=== PATIENT | female | born 1940 | race Caucasian/White ===

== ENCOUNTER → 2017-09-28 | Outpatient (CLI) | payer MEDICARE ==
[~2017-09-28] MED LIST: ALEN70 PO; ASPI81TA23 PO; ASPI81TA82 PO; AZOP1SUS LEFT EYE; BESI0.6S RIGHT EYE; CENTCHW3 PO; DENO60P SQ; DICL75 PO; DICL75TA PO; DIFL0.0512 RIGHT EYE; GLUC500C3 PO; GLUC500C36 PO; LATA.005%O LEFT EYE; LISI-360 PO; LISI10TA3 PO; TAB-TAB PO; TRAV0.00 LEFT EYE
--- NOTE | 2017-09-28 11:04 | RADRPT ---
EXAM DATE: 09/28/2017 10:45 AM EDT AGE/SEX: 77 years / Female INDICATIONS: Evaluate for pneumothorax, pneumonia or communicable disease. Pre-op, right hip replace ment. CLINICAL DATA: This is the patient's initial encounter. Patient reports that signs and symptoms have been present for 1 day and indicates a pain score of 0/10. MEDICAL/SURGICAL HISTORY: None. Hysterectomy. COMPARISON: No prior [place] exams available for comparison. FINDINGS: PA and lateral views of the chest demonstrate the lungs to be symmetrically aerated without evidence of mass, infiltrate or effusion. The cardiomediastinal contours are unremarkable. Osseous structures are intact. CONCLUSION: Negative examination. Electronically signed by: Zion Alejo MD 09/28/2017 11:02 AM EDT
[2017-09-28 11:10] LABS: BILIRUBIN, URINE NEG (NEG); BLOOD, URINE NEG (NEG); GLUCOSE,URINE NEG (NEG); KETONE, URINE NEG (NEG); NITRITE,URINE NEG (NEG); SQUAMOUS EPITHELIAL CELL URINE <1 /hpf (0-5); URINE COLOR YELLOW (YELLW/STRAW); URINE LEUKOCYTE ESTERASE NEG (NEG)
[2017-09-28 11:13] LABS: AUTOMATED NEUTROPHIL # 4.4 TH/MM3 (1.8-7.7); BASOPHIL # 0.1 TH/MM3 (0-0.2); EOSINOPHIL # 0.2 TH/MM3 (0-0.4); EOSINOPHIL % 3.1 % (0.0-4.0); HEMATOCRIT 43.7 % (35.0-46.0); HEMOGLOBIN 14.4 GM/DL (11.6-15.3); LYMPH % 16.6 % (9.0-44.0); MEAN CELL VOLUME 92.1 FL (80.0-100.0); MEAN CORPUSCULAR HEMOGLOBIN 30.4 PG (27.0-34.0); MEAN PLATELET VOLUME 11.7 FL (7.0-11.0); MONO % 9.2 % (0.0-8.0); MONOCYTE # 0.6 TH/MM3 (0-0.9); NEUT % 70.1 % (16.0-70.0); PLATELET COUNT 200 TH/MM3 (150-450); PROTHROMBIN TIME - PATIENT 10.3 SEC (9.8-11.6); RED BLOOD COUNT 4.74 MIL/MM3 (4.00-5.30); WHITE BLOOD COUNT 6.3 TH/MM3 (4.0-11.0)
[2017-09-28 11:31] LABS: BICARBONATE 27.6 MEQ/L (21.0-32.0); CALCIUM 8.5 MG/DL (8.5-10.1); CREATININE 0.75 MG/DL (0.50-1.00)
--- NOTE | 2017-09-28 18:15 | EKG ---
Date Performed: 09/28/2017 Time Performed: 09:44:12 PTAGE: 77 years EKG: Sinus rhythm POSSIBLE LEFT ATRIAL ENLARGEMENT Since previous tracing, no significant change noted BORDERLINE ECG PREVIOUS TRACING : 09/12/2011 10.16.16 DOCTOR: Taylor Young Interpretating Date/Time 09/28/2017 18:13:53
== END ==
LOC: CPRE 08:37
PROVIDERS: ATTEND Orthopaedic Surgery
DX: Z01.812 Encounter for preprocedural laboratory examination (principal); Z01.810 Encounter for preprocedural cardiovascular examination; Z01.811 Encounter for preprocedural respiratory examination; M16.11 Unilateral primary osteoarthritis, right hip; R94.31 Abnormal electrocardiogram [ECG] [EKG]
CPT/HCPCS: 36415; 71046; 80048; 81001; 85025; 85610; 93005

== ENCOUNTER 2017-10-23 05:08 | Inpatient (IN) | payer MEDICARE ==
--- NOTE | 2017-10-08 16:37 | MH ---
cc: Terrence Carrion MD DATE OF ADMISSION: 10/23/2017 DIAGNOSIS: Osteoarthritis of her right hip. HISTORY: The patient is a 77-year-old white female who presented to the office in March of this past year, complaining of pain involving her right lower extremity. 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 Her symptoms tended to linger thereafter and she returned to the office in June of this year reporting generalized discomfort that was becoming more localized to her right hip area. She had been taking diclofenac on a routine basis with some limited benefit being noted, but because of a recent flare-up of her symptoms, she elected to undergo updated office evaluation. Her x-ray studies at that time were suggestive of some early degenerative changes with hypertrophic reaction along the lateral margin of the femoral head, but preservation of the joint space was noted. Findings and treatment options were reviewed. The patient was treated with a local steroid injection for a suspected trochanteric bursitis along the lateral aspect of her right hip and thereafter being followed on an outpatient basis. She returned to the office reporting ongoing pain for which she subsequently underwent an MRI scan of her pelvis, the results of which will be reported severe bony edema about the right femoral head and neck, with a small linear low signal finding in the subchondral region about the femoral head. Diagnosis included subchondral insufficiency fracture versus an early avascular necrosis. The findings and treatment options were reviewed with the patient at that time. She was encouraged to proceed with a fluoroscopic injection of her right hip for further disposition and trying to distinguish the etiology of her pain. She did complete the injection treatment that did not provide her with any significant pain relief, but she continued to note generalized discomfort about her right groin area that was interfering with all ambulatory activities. 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 The pros and cons of continuing with conservative management versus operative intervention that would involve total hip replacement were outlined in detail. The possibility of proceeding with operative intervention involving surgery was left entirely to the patient's discretion. The patient returned to the office in more followup disposition and at that time her current x-ray studies were suggestive of a more definitive arthritic involvement about the hip area. At that time, the patient felt that she was ready to proceed with surgery as had previously been discussed and, in compliance with her wishes, she was scheduled for admission at this time in order that the above be accomplished. PAST MEDICAL HISTORY, HOSPITALIZATIONS AND SURGERIES: Have included arthroscopic surgery of the right knee, bilateral total knee arthroplasties, manipulation of the right knee for flexion contracture postoperatively, appendectomy, hemorrhoidectomy, lumpectomy of the right breast for history of breast cancer followed by radiation therapy and tamoxifen over a 5-year interval of time, laser surgery of the right eye, bilateral cataract excision, basal cell excision of the right eyelid, surgical stabilization, bimalleolar fracture left ankle, abdominal hysterectomy and salpingo-oophorectomy and colonoscopy. The patient's medical illnesses include hyperlipidemia treated by diet management. CURRENT MEDICATIONS: 1. Glucosamine. 2. Azopt 1% ophthalmic solution twice daily to the left thigh. 3. Travatan eye drops left eye daily. 4. Lisinopril 10 mg daily. 5. Multivitamin tablet daily. 6. Cheri Aspirin 81 mg tablet daily. 7. Prolia injections twice yearly. 8. Diclofenac 75 mg twice daily. DRUG ALLERGIES: DIAMOX which has caused low back pain. CODEINE has been associated with nausea. REVIEW OF SYSTEMS: Wears glasses. No headache, seizure, or syncope. Auditory acuity intact; no tinnitus. No bleeding gums or dysphagia. Denies cough, shortness of breath, upper respiratory infection, pneumonia, or tuberculosis. No angina or heart disease. Appetite good. Bowel movements regular. No hepatitis, gallbladder disease, ulcers. There is a history of hemorrhoids, status post hemorrhoidectomy. No urinary tract infection, no kidney stones. Left wrist fracture treated by closed reduction and external fixation, bimalleolar fracture left ankle, stress fracture of the left femur and ischium, toe fractures treated nonoperatively. No psychiatric illness. Remaining review of systems is unremarkable and noncontributory. FAMILY HISTORY: 59 years. Her is 78 years of age, in reasonably good health being status post open heart surgery. Three sons, 1 at 19 years of age secondary to suicide. The remaining sons in good health. FAMILY HISTORY: Positive for diabetes, melanoma and glaucoma. SOCIAL HISTORY: Completed a atif college education and a subsequent degree from [employer]. Denies active use of tobacco for more than 30 years, but had been a [id number] user in the past. Ethanol consumption socially in the form of an occasional glass of wine. PHYSICAL EXAMINATION: VITAL SIGNS: Height 5 feet, 2 inches, weight 135 pounds. GENERAL: This is an alert, oriented, and responsive 77-year-old white female sitting quietly upon the examination table with no apparent distress. HEAD, EARS, EYES, NOSE, AND THROAT: Pupils are equally round and reactive to light. Extraocular movements full. Sclerae are clear. External nares clear. External auditory canals clear. Dental intact. Mucous membranes pink and moist. Pharynx clear. NECK: Supple. Active range of motion without appreciable pain. Carotid pulse is palpable bilaterally. Trachea midline. Thyroid without thyroid enlargement. LUNGS: Clear to auscultation and percussion. BACK: No CVA tenderness. No discomfort throughout the dorsolumbar spine. HEART: Regular rate and rhythm. No murmur or gallop. ABDOMEN: Soft, nontender, bowel sounds present. PELVIC: Per primary care physician. EXTREMITIES: Right hip: No localizing tenderness to palpation. There is restricted mobility of the hip joint being most pronounced with both internal and external rotation and pain at the extreme of motion. No sensation of crepitation or instability. Straight leg raising is negative at 80 degrees. Brett sign is positive. Distal sensory grossly intact. Mild antalgic gait. NEUROLOGIC: Cranial nerves 2-12 grossly intact. IMPRESSION: Osteoarthritis, right hip. PLAN: Right total hip arthroplasty. The nature of the planned surgical procedure, the potential complications and risks associated, the expectations of surgery and the consent form were thoroughly reviewed with the patient prior to admission to the hospital. Shama has indicated her full understanding regarding all of the above and given consent to proceed with treatment as outlined. Medical evaluation and clearance for surgery completed by her primary care physician, Dr. Devaughn Díaz. MD LESLEE Castaneda/SB , 04:03 PM , 04:36 PM
[~2017-10-23] VITALS: Ht 157.5 cm; Wt 62.8 kg
[~2017-10-23 05:08] MED LIST changes: -ALEN70 PO; -ASPI81TA82 PO; -DICL75 PO; -GLUC500C3 PO; -LISI-360 PO; -TAB-TAB PO; -TRAV0.00 LEFT EYE
[2017-10-23] MEDS ORDERED: LACTATED RINGER'S 1000 ML IV PRN (05:30)
[2017-10-23] MEDS ORDERED: CHLORHEXIDINE GLUCONATE 2 % 1 PACK (2 CLOTHS) TOPICAL PRN (05:30)
[2017-10-23] MEDS ORDERED: ceFAZolin 2 GM PREMIX 50 ML IV SCH (05:30)
[2017-10-23] MEDS ORDERED: INSULIN HUMAN REGULAR 1,000 UNITS/10 ML VIAL SQ PRN (05:30)
[2017-10-23] MEDS ORDERED: POVIDONE IODINE 5% (ANTISEPSIS KIT) 4 APPLICATIONS EACH NARE PRN (05:30)
[2017-10-23] MEDS ORDERED: SODIUM CHLORID 0.9% 500 ML IV PRN (05:30)
[2017-10-23] MEDS ORDERED: TRANEXAMIC ACID 1 GM PRIOR TO PROCEDURE IV SCH ×2 (06:00)
[2017-10-23] MEDS ORDERED: ceFAZolin INJ 1,000 MG VIAL ONE ×2 (06:00→13:22)
[2017-10-23] MEDS ORDERED: MIDAZOLAM HCL 2 MG/2 ML VIAL ONE (06:14)
[2017-10-23] MEDS ORDERED: ACETAMINOPHEN 1000 MG/100 ML 100 ML IV ONE (06:14)
[2017-10-23] MEDS ORDERED: FAMOTIDINE 20 MG/2 ML VIAL ONE (06:14)
[2017-10-23] MEDS ORDERED: TRANEXAMIC ACID 1 GM POST-OP IV SCH ×2 (09:00)
[2017-10-23] MEDS ORDERED: DO NOT ADM ANY ANTICOAGULANT DRUGS PRN (09:10)
[2017-10-23] MEDS ORDERED: *morphine SULFATE 4 MG/ML PERIprocedure ONLY ONE ×3 (09:20→09:36)
[2017-10-23] MEDS ORDERED: ACETAMINOPHEN 325 MG TAB PO PRN (09:30)
[2017-10-23] MEDS ORDERED: traMADol HCL 50 MG TAB PO PRN (09:30)
[2017-10-23] MEDS ORDERED: Post-op Orders (for Pharmacy) XX ONE (09:30)
[2017-10-23] MEDS ORDERED: ONDANSETRON ODT 4 MG TAB PO PRN (09:30)
[2017-10-23] MEDS ORDERED: TRANEXAMIC ACID INJ 1,000 MG in SODIUM CHLORIDE 0.9% INJ 100 ML IV SCH (09:30)
[2017-10-23] MEDS ORDERED: DOCUSATE SODIUM 100 MG CAP PO PRN (09:30)
[2017-10-23] MEDS ORDERED: PHARMACY INFORMATION XX ONE (09:30)
[2017-10-23] MEDS ORDERED: MORPHINE SULFATE 30 MG/30 ML PCA IV SCH (09:30)
[2017-10-23] MEDS ORDERED: NALOXONE HCL 0.4 MG/ML AMP IV PUSH PRN (09:30)
[2017-10-23] MEDS ORDERED: HYDROmorphone HCL PF 2 MG/ML VIAL IV PUSH PRN (09:30)
--- NOTE | 2017-10-23 09:31 | HHI.FF ---
Face to Face Verification Diagnosis: (1) Degenerative joint disease of right hip Physical Therapy Gait training Hip: Total hip, Protocol: Right, Abduction pillow while in bed Right LE Weight Bearing: WB as tolerated Right LE Range of Motion: Active ROM Nursing Dressing Changes: Daily dressing change I have seen patient Shama Barksdale on 10/23/17. My clinical findings support the need for the requested home health care services because: Limited ability to care for self High risk of falls I certify that my clinical findings support that this patient is homebound because: Post-op weakness Unsteady gait/balance Unsafe to leave home unassisted Terrence Carrion MD Oct 23, 2017 09:31
[2017-10-23] MEDS: DEXT 5%-NACL 0.45% 1000 ML INJ 1,000 ML IV SCH ×3 (09:45→20:34)
[2017-10-23] MEDS ORDERED: HYDROmorphone HCL PF 2 MG/ML VIAL ONE ×2 (09:48→10:28)
--- NOTE | 2017-10-23 09:50 | MP ---
cc: Terrence Carrion MD DATE OF OPERATION: PREOPERATIVE DIAGNOSIS: Osteoarthritis of the right hip. POSTOPERATIVE DIAGNOSIS: Osteoarthritis of the right hip. PROCEDURE PERFORMED: Right total hip arthroplasty. SURGEON: Terrence Carrion MD ANESTHESIA: General endotracheal. INDICATIONS: A 77-year-old white female with a 7-month history of pain involving the right hip area. She had initially been diagnosed as having an intervertebral disk disorder of her lumbosacral spine for which she was advised conservative management. The symptoms tended to linger thereafter and she returned to the office in June of this year reporting generalized discomfort becoming more localized to the area of her right hip. She has been taking diclofenac on a routine basis with some limited benefit being noted but because of a recent flare of her symptoms, she underwent an updated evaluation. Her x-ray studies at that time were suggestive of early degenerative changes with hypertrophic reaction along the lateral margin of the femoral head, but preservation of the joint space. Findings and treatment options were reviewed. The patient was treated with a local steroid injection for a suspected trochanteric bursitis and thereafter followed on an outpatient basis. She returned to the office thereafter reporting ongoing pain for which she later underwent an MRI scan of her pelvis, the results of which reported severe bony edema about the right femoral head and neck, with a small linear low signal finding in the subchondral region about the femoral head. Diagnosis included subchondral insufficiency fracture versus early avascular necrosis. Findings and treatment options were reviewed with the patient at that time. She was encouraged to proceed with a fluoroscopic injection of her right hip. Further disposition in an attempt to obtain a more specific etiology of her pain. She did complete an injection that did not provide her with any significant pain relief, but continued to note generalized discomfort about her right groin area that was interfering with all ambulatory activities. Her findings were felt to be consistent with an idiopathic aseptic necrosis of her right femoral head, for which findings and treatment options were reviewed. The pros and cons of continuing with conservative management versus operative intervention that would involve total hip replacement were outlined in detail. Emphasis was made regarding the fact that the decision to proceed with surgery would be left entirely to the patient's discretion. More current x-ray studies were completed thereafter that were more suggestive of a more definitive arthritic involvement about her hip area and at that time, the patient felt that she was ready to proceed with surgery as had previously been discussed and in compliance with her wishes, she was scheduled for admission at this time in order that the above be accomplished. FORMAT: Following induction of satisfactory general anesthesia by endotracheal intubation as completed per the Department of Anesthesia, the patient was positioned upon the operating table in a left lateral decubitus fashion. The right hip and lower extremity proper were isolated with a U-drape, thereafter being prepped with Betadine solution and draped into a sterile field in the routine manner. Prior to initiation of the actual procedure, the standard timeout protocol was completed. All parameters were appropriately addressed and confirmed by operating room personnel. A standard posterolateral approach to the hip was initiated through a sharp skin incision and developed through underlying subcutaneous tissue with hemostasis maintained by electrocautery. By deepening dissection, the fascia overlying the gluteus musculature was exposed and thereafter sharply incised to the limits of the incision. The underlying gluteus fibers were bluntly divided. Progressive dissection facilitated exposure of the short external rotator structures. The piriformis tendon was utilized as an anatomical landmark and division of these structures was completed in a superior to inferior orientation and reflected medially, exposing the posterior capsule. The sciatic nerve was protected. An L-shaped capsulotomy was accomplished through which a posterior dislocation of the femoral head was completed. Examination revealed severe degenerative changes with significant erosion of articular cartilage and underlying subchondral bone exposed hypertrophic bony reaction along the margins of the femoral head. The femoral template was positioned for alignment orientation. The neck was scored and thereafter divided with power saw, the amputated segment being passed to the back table as surgical specimen. Attention was initially directed to the proximal femur. Cancellous bone was harvested. The tapered reamer was inserted for alignment orientation. Sequential rasping and broaching was accomplished from 7 through 10 mm with the calcar butch being utilized at the 10 mm stage. The 10 mm stem was determined to be a favorable fit. The trial component being removed, attention was redirected to the acetabulum. The labrum and reactive soft tissue were sharply excised. Progressive reaming was accomplished from 44-50 mm. The 50 mm trial shell was positioned and determined to be satisfactory. All trial components being removed, the wound was copiously irrigated with pulsating antibiotic solution, hemostasis maintained by electrocautery. Thereafter, a 50 mm RingLoc acetabular shell was firmly seated into the acetabulum in approximately 45 degrees inclination to the horizontal and slight anteversion. A single 25 mm 6.5 cancellous screw was inserted superiorly to augment fixation. The permanent high wall acetabular liner was affixed to the acetabular shell. The size 10 femoral broach was repositioned and a trial reduction followed utilizing a 36 mm modular head with -6 mm neck length adaptor. The hip readily reduced and carried through a passive range of motion with stability demonstrated at 90 degrees flexion and 45 degrees internal rotation. An open dislocation completed, the trial femoral components being removed, the canal was thoroughly irrigated and dried and thereafter, the size 10 Echo Bi-Metric standard femoral stem was firmly seated to which, a 36 mm ceramic head with -6 mm neck length adapter was attached. The hip was again carried through a passive range of motion with stability demonstrated as previously described. Final irrigation was accomplished, hemostasis maintained by electrocautery. The posterior capsule was repaired with 0 Vicryl suture. Piriformis tendon and short external rotator structures were reapproximated in a similar fashion. Hemovac drain tubes were inserted through superior stab wounds. The fascia of the gluteus musculature was reapproximated with a running 0 Vicryl suture. The remaining portion of the wound was closed in layers in the routine manner, skin margins being reapproximated with a running subcuticular 3-0 Vicryl suture over which Steri-Strips were applied. Xeroform gauze and a bulky dry sterile dressing were placed. The patient was repositioned into a supine orientation where an abduction splint was attached. Anesthesia was discontinued. She was thereafter transferred to a hospital bed and returned to the recovery room in satisfactory condition, having tolerated her operative procedure well. ESTIMATED BLOOD LOSS: Approximately 300 mL as determined per anesthesia. IMPLANTS: All implants were of the [employer] ccu. Terrence Carrion MD NBS/TL , 09:20 AM , 09:48 AM
--- NOTE | 2017-10-23 10:29 | RADRPT ---
EXAM DATE: 10/23/2017 10:25 AM EDT AGE/SEX: 77 years / Female INDICATIONS: Post op right hip. CLINICAL DATA: This is the patient's initial encounter. Patient reports that signs and symptoms have been present for 1 day and indicates a pain score of Nonresponsive. MEDICAL/SURGICAL HISTORY: None. None. COMPARISON: No prior exams available for comparison. FINDINGS: AP view of the right hip joint demonstrates the hardware related to total hip arthroplasty. There is a single acetabular screw. Components are noncemented. Surgical drain is in place and there is soft t issue air, as expected. No unexpected finding is identified. There is degenerative change at the pubi c symphysis. CONCLUSION: Expected changes following recent right total hip arthroplasty, as above. Electronically signed by: Zion Campos MD 10/23/2017 10:28 AM EDT
[2017-10-23] MEDS ORDERED: ROCURONIUM INJ 50 MG/5 ML SYRINGE IV PUSH ONE (12:00)
[2017-10-23] MEDS ORDERED: PHENYLEPH/NS 1000 MCG/10 ML SYR IV ONE (12:00)
[2017-10-23] MEDS ORDERED: PROPOFOL 200 MG/20 ML AMP IV ONE (12:00)
[2017-10-23] MEDS ORDERED: LIDOCAINE HCL 1% PF 5 ML SYRINGE OTHER ONE (12:00)
[2017-10-23] MEDS ORDERED: NEOSTIGMINE 5 MG/5 ML SYRINGE IV PUSH ONE (12:00)
[2017-10-23] MEDS ORDERED: LACTATED RINGER'S 1000 ML INJ 1,000 ML IV ONE (12:00)
[2017-10-23] MEDS ORDERED: DEXAMETHASONE SOD PHOS 4 MG/ML VIAL IV ONE (12:00)
[2017-10-23] MEDS ORDERED: GLYCOPYRROLATE 1 MG/5 ML SYRINGE IV PUSH ONE (12:00)
[2017-10-23] MEDS ORDERED: ONDANSETRON HCL 4 MG/2 ML VIAL IV ONE (12:00)
[2017-10-23] MEDS ORDERED: SODIUM CHLORIDE 0.9% INJ 100 ML ONE (13:22)
[2017-10-23] MEDS: CEFAZOLIN INJ 1,000 MG in SODIUM CHLORIDE 0.9% INJ 100 ML IV SCH ×2 (13:26→20:34)
--- NOTE | 2017-10-23 13:46 | PD.CONS ---
[facility] By [facility] Physician Vaughn Díaz MD Diagnoses: History of Present Illness 69-year-old female with history of diet-controlled hyperlipidemia, hypertension , glaucoma, osteoarthritis who presents status post elective right total hip arthroplasty. Patient says she is feeling all right. Reports pain is controlled. She denies any chest pain, shortness of breath, nausea, vomiting. Most recent bowel movement yesterday. She says she felt fine prior to surgery, with no recent respiratory illnesses or symptoms of infection. Review of Systems Except as stated in HPI: all other systems reviewed are Neg Past Family Social History Allergies: Coded Allergies: acebutolol (Unverified Allergy, Mild, SOB, 10/23/17) ADVERSE REACTION. PT BECAME SOB WHILE RUNNING WHEN ON BETA BLOCKERS atenolol (Unverified Allergy, Mild, SOB, 10/23/17) ADVERSE REACTION. PT BECAME SOB WHILE RUNNING WHEN ON BETA BLOCKERS betaxolol (Unverified Allergy, Mild, SOB, 10/23/17) ADVERSE REACTION. PT BECAME SOB WHILE RUNNING WHEN ON BETA BLOCKERS carvedilol (Unverified Allergy, Mild, SOB, 10/23/17) ADVERSE REACTION. PT BECAME SOB WHILE RUNNING WHEN ON BETA BLOCKERS labetalol (Unverified Allergy, Mild, SOB, 10/23/17) ADVERSE REACTION. PT BECAME SOB WHILE RUNNING WHEN ON BETA BLOCKERS metoprolol (Unverified Allergy, Mild, SOB, 10/23/17) ADVERSE REACTION. PT BECAME SOB WHILE RUNNING WHEN ON BETA BLOCKERS nebivolol (Unverified Allergy, Mild, SOB, 10/23/17) ADVERSE REACTION. PT BECAME SOB WHILE RUNNING WHEN ON BETA BLOCKERS pindolol (Unverified Allergy, Mild, SOB, 10/23/17) ADVERSE REACTION. PT BECAME SOB WHILE RUNNING WHEN ON BETA BLOCKERS propranolol (Unverified Allergy, Mild, SOB, 10/23/17) ADVERSE REACTION. PT BECAME SOB WHILE RUNNING WHEN ON BETA BLOCKERS sotalol (Unverified Allergy, Mild, SOB, 10/23/17) ADVERSE REACTION. PT BECAME SOB WHILE RUNNING WHEN ON BETA BLOCKERS timolol (Unverified Allergy, Mild, SOB, 10/23/17) ADVERSE REACTION. PT BECAME SOB WHILE RUNNING WHEN ON BETA BLOCKERS acetazolamide (Verified Allergy, Unknown, 10/23/17) codeine (Verified Adverse Reaction, Severe, Nausea/Vomiting, 10/23/17) Past Medical History Osteoporosis Hypertension Glaucoma Chronic pain. Hyperlipidemia treated by diet Past Surgical History Arthroscopic surgery of the right knee bilateral total knee arthroplasties appendectomy hemorrhoidectomy lumpectomy of right breast with subsequent radiation and tamoxifen over 5 years. Laser keratotomy of the right eye Basal cell excision of the right eyelid Bimalleolar fracture of the left ankle Abdominal hysterectomy and salpingo-oophorectomy Colonoscopy Reported Medications Reported Meds & Active Scripts Active Reported Diclofenac Sodium DR (Diclofenac Sodium) 75 Mg Tabdr 75 Mg PO BID Prolia Inj (Denosumab) 60 Mg/Ml Inj 60 Mg SQ Q180D Lisinopril 10 Mg Tab 10 Mg PO BID Durezol Opth (Difluprednate Opth) 0.05% Emul 1 Drop RIGHT EYE BID Besivance Opth Drops (Besifloxacin Opth Drops) 0.6% Drops 1 Drop RIGHT EYE DAILY Azopt Opth Drops (Brinzolamide) 1% Susp 1 Drop LEFT EYE BID Xalatan Opth Drops (Latanoprost) 0.005% Drops 1 Drop LEFT EYE HS Centrum Silver (Multiple Vitamins W/ Minerals) 400 Mcg-250 Mcg Chw 1 Tab PO DAILY Glucosamine & Chondroitin Cap (Glucosa Raza 2Kcl/Chondroitin Raza) 500 Mg-400 Mg Capsule 3 Tab PO DAILY pt reports dose of 1500/1200 mg per day Aspirin EC (Aspirin) 81 Mg Tabdr 81 Mg PO DAILY Family History Mother with diabetes. Father secondary to old age Social History Non-smoker. Occasional alcohol use. Denies any illicit drugs Physical Exam Vital Signs Vital Signs Date Time Temp Pulse Resp B/P (MAP) Pulse Ox O2 Delivery O2 Flow Rate FiO2 10/23/17 10:17 12 10/23/17 10:15 61 10 134/68 (90) 97 Nasal Cannula 2 10/23/17 10:00 59 12 147/71 (96) 98 Nasal Cannula 2 10/23/17 09:45 62 12 132/66 (88) 100 Nasal Cannula 2 10/23/17 09:30 66 18 138/68 (91) 100 Nasal Cannula 2 10/23/17 09:15 69 18 162/79 (106) 100 Nasal Cannula 2 10/23/17 09:12 97.4 75 17 164/82 (109) 100 Nasal Cannula 2 10/23/17 06:01 98.1 61 20 159/79 (768) 97 Physical Exam GENERAL: This is a well-nourished, well-developed patient, in no apparent distress. Somnolent, wakes up for exam and oriented 3. SKIN: No rashes, ecchymoses or lesions. Cool and dry. HEAD: Atraumatic. Normocephalic. No temporal or scalp tenderness. EYES: Pupils equal round and reactive. Extraocular motions intact. No scleral icterus. No injection or drainage. ENT: Nose without bleeding, purulent drainage or septal hematoma. Throat without erythema, tonsillar hypertrophy or exudate. Uvula midline. Airway patent. NECK: Trachea midline. No JVD or lymphadenopathy. Supple, nontender, no meningeal signs. CARDIOVASCULAR: Regular rate and rhythm without murmurs, gallops, or rubs. RESPIRATORY: Clear to auscultation. Breath sounds equal bilaterally. No wheezes , rales, or rhonchi. GASTROINTESTINAL: Abdomen soft, non-tender, nondistended. No hepato-splenomegaly , or palpable masses. No guarding. MUSCULOSKELETAL: Extremities without clubbing, cyanosis, or edema. No joint tenderness, effusion, or edema noted. No calf tenderness. Negative Homans sign bilaterally. NEUROLOGICAL: Somnolent, wakes up for exam. Cranial nerves II through XII intact. Motor and sensory grossly within normal limits. Right hip not examined. Peripheral perfusion intact. Normal speech. Imaging Last Impressions Hip X-Ray 10/23/17 0910 Signed Impressions: CONCLUSION: Expected changes following recent right total hip arthroplasty, as above. Assessment and Plan Assessment and Plan //Postoperative elective right-sided total hip arthroplasty on 10/23 Postoperative management as per surgical service Pain management as per surgical service //Glaucoma. Chronic. Continue home medications //Hypertension. Chronic. Blood pressure acceptable. Continue home medications. Discussed Condition With Patient, nurse. Ezra Underwood MD Oct 23, 2017 13:46
[2017-10-23 14:00] VITALS: BP 174/70; PULSE 75; RESP 16; TEMP 98.3; O2SAT 98
[2017-10-23] MEDS: PCA - TOTAL MG MORPHINE DELIVERED PER SHIFT SCH ×2 (14:00→20:33)
[2017-10-23 20:05] VITALS: BP 122/69; PULSE 85; RESP 18; TEMP 97.4; O2SAT 94
[2017-10-23] MEDS: LISINOPRIL 10 MG TAB PO SCH (20:33)
[2017-10-23] MEDS: LATANOPROST 0.005% OPHT SOLN 2.5 ML BTL LEFT EYE SCH (20:34)
[2017-10-23] MEDS ORDERED: BRINZOLAMIDE LEFT EYE SCH (21:00)
[2017-10-23] MEDS ORDERED: ZOLPIDEM TARTRATE 5 MG TAB PO PRN (21:00)
[2017-10-23] MEDS ORDERED: DIFLUPREDNATE RIGHT EYE SCH (21:00)
[2017-10-24 00:30] VITALS: BP 129/59; PULSE 91; RESP 17; TEMP 98.4; O2SAT 94
[2017-10-24] MEDS: CEFAZOLIN INJ 1,000 MG in SODIUM CHLORIDE 0.9% INJ 100 ML IV SCH (01:58)
[2017-10-24 04:15] VITALS: BP 105/59; PULSE 84; RESP 17; TEMP 98.6; O2SAT 95
[2017-10-24] MEDS: PCA - TOTAL MG MORPHINE DELIVERED PER SHIFT SCH ×3 (05:41→22:00)
[2017-10-24] MEDS ORDERED: RIVAROXABAN 10 MG TAB PO SCH (06:00)
[2017-10-24] MEDS ORDERED: ASPI-183 PO (06:13)
[2017-10-24] MEDS ORDERED: TRAM50 PO (06:13)
[2017-10-24] MEDS ORDERED: WALKER WHEELS/F1 MIS (06:17)
[2017-10-24] MEDS ORDERED: COMMODE 3-IN-11 MIS (06:17)
[2017-10-24 07:17] LABS: HEMATOCRIT 35.7 % (35.0-46.0); HEMOGLOBIN 11.8 GM/DL (11.6-15.3)
[2017-10-24 08:00] VITALS: BP 129/67; PULSE 82; RESP 18; TEMP 98.6; O2SAT 95
[2017-10-24] MEDS: LISINOPRIL 10 MG TAB PO SCH ×2 (08:13→22:00)
[2017-10-24] MEDS: RIVAROXABAN 10 MG TAB PO SCH (08:14)
[2017-10-24] MEDS ORDERED: BESIFLOXACIN RIGHT EYE SCH (09:00)
[2017-10-24] MEDS: ASPIRIN EC 81 MG TABEC PO SCH (09:00)
[2017-10-24] MEDS: DEXT 5%-NACL 0.45% 1000 ML INJ 1,000 ML IV SCH ×2 (09:45→15:23)
[2017-10-24] MEDS ORDERED: METOCLOPRAMIDE HCL 10 MG/2 ML VIAL IV PUSH PRN (10:00)
[2017-10-24] MEDS ORDERED: LACTULOSE SYRUP 20 GM/30 ML CUP PO PRN (10:30)
--- NOTE | 2017-10-24 10:30 | HHI.PR ---
Subjective Remarks Follow-up visit for elective total right-side hip arthroplasty. She is seen and examined sitting in bed in no acute distress with family at bedside. Patient reports that she was nauseated yesterday but believes it might be related to anesthesia, no nausea overnight or this morning. Pain has been stable reports she forgets to use [facility] pump. She does complain of constipation, today would be day 3 without a bowel movement. She voices no other acute concerns or complaints at this moment. Objective Vitals Vital Signs Date Time Temp Pulse Resp B/P (MAP) Pulse Ox O2 Delivery O2 Flow Rate FiO2 10/24/17 08:00 98.6 82 18 129/67 (87) 95 10/24/17 05:41 5 10/24/17 04:15 98.6 84 17 105/59 (74) 95 10/24/17 00:30 98.4 91 17 129/59 (82) 94 10/23/17 20:05 97.4 85 18 122/69 (86) 94 10/23/17 14:00 98.3 75 16 174/70 (104) 98 10/23/17 14:00 16 10/23/17 13:00 76 12 118/66 (83) 98 Nasal Cannula 2 10/23/17 12:00 72 12 108/58 (75) 98 Nasal Cannula 2 10/23/17 11:00 68 12 125/65 (85) 97 Nasal Cannula 2 10/23/17 10:30 65 12 139/72 (94) 97 Nasal Cannula 2 I/O 10/23/17 10/23/17 10/23/17 10/24/17 10/24/17 10/24/17 07:00 15:00 23:00 07:00 15:00 23:00 Intake Total 1700 ml 1000 ml 360 ml Output Total 330 ml 70 ml Balance 1370 ml 1000 ml 290 ml Intake Oral 360 ml IV Total 1000 ml Other 1700 ml Output Drainage Total 30 ml 70 ml Estimated Blood Loss 300 ml # Voids 3 # Bowel Movements 0 Result Diagram: 10/24/17 0630 Imaging Last Impressions Hip X-Ray 10/23/17 0923 Signed Impressions: CONCLUSION: Expected changes following recent right total hip arthroplasty, as above. Objective Remarks GENERAL: Well-nourished, well-developed female in no acute distress. SKIN: Cool and dry. HEAD: Atraumatic. Normocephalic. EYES: Pupils equal round. No scleral icterus. No injection or drainage. ENT: Nose without bleeding, purulent drainage. Airway patent. NECK: Trachea midline. No JVD. CARDIOVASCULAR: Regular rate and rhythm without murmurs, gallops, or rubs. RESPIRATORY: Clear to auscultation. Breath sounds equal bilaterally. No wheezes , rales, or rhonchi. GASTROINTESTINAL: Abdomen soft, non-tender, nondistended. Normoactive bowel sounds, no guarding. MUSCULOSKELETAL: Extremities without clubbing, cyanosis, or edema. Limited right hip movement secondary to surgery. Dressing dry and intact, accordion drain noted with dark red blood. NEUROLOGICAL: Awake, alert, oriented 3. No cranial nerve deficit noted motor and sensory grossly within normal limits. Moving all extremities, normal speech. A/P Assessment and Plan 77-year-old female admitted to hospital for elective total right hip arthroplasty. Elective right sided total hip arthroplasty - POD 1, done by - PT/ IS, bowel program -Pain management with [facility] pump, as needed tramadol and Dilaudid -Anticoagulation per Ortho. -Nausea has resolved, as needed Reglan IV Hypertension, controlled -Continue home dose lisinopril. Constipation -Secondary to pain medication, continue stool softener. Discussed with patient requesting lactulose today, available PRN Glaucoma -Continue home Latanoprost DVT prophylaxis-Xarelto Discussed with patient and RN. Discharge Planning Pending orthopedic clearance. PT recommends wheeled walker, bedside commode, home with home health PT. Francie Coker Oct 24, 2017 10:30
[2017-10-24 12:00] VITALS: BP 120/57; PULSE 88; RESP 17; TEMP 98.2; O2SAT 94
[2017-10-24] MEDS: traMADol HCL 50 MG TAB PO PRN ×2 (12:00→19:30)
[2017-10-24 16:24] VITALS: BP 132/68; PULSE 86; RESP 18; TEMP 98.1; O2SAT 94
[2017-10-24 20:00] VITALS: BP 151/67; PULSE 92; RESP 18; TEMP 98.8; O2SAT 94
[2017-10-24] MEDS: LATANOPROST 0.005% OPHT SOLN 2.5 ML BTL LEFT EYE SCH (22:05)
[2017-10-25 00:01] VITALS: BP 127/66; PULSE 100; RESP 18; TEMP 98.8; O2SAT 93
[2017-10-25] MEDS: DEXT 5%-NACL 0.45% 1000 ML INJ 1,000 ML IV SCH ×4 (01:45→21:12)
[2017-10-25 04:00] VITALS: BP 149/71; PULSE 104; RESP 18; TEMP 99.8; O2SAT 93
[2017-10-25] MEDS: traMADol HCL 50 MG TAB PO PRN ×3 (04:05→23:08)
[2017-10-25] MEDS: PCA - TOTAL MG MORPHINE DELIVERED PER SHIFT SCH (06:00)
[2017-10-25 08:03] VITALS: BP 120/61; PULSE 97; RESP 18; TEMP 99.2; O2SAT 94
[2017-10-25] MEDS: RIVAROXABAN 10 MG TAB PO SCH (09:54)
[2017-10-25] MEDS: ASPIRIN EC 81 MG TABEC PO SCH (09:54)
[2017-10-25] MEDS: LISINOPRIL 10 MG TAB PO SCH ×2 (09:54→21:10)
--- NOTE | 2017-10-25 10:09 | HHI.PR ---
Subjective Remarks Overall pain controlled. No other concerns. Objective Vitals Vital Signs Date Time Temp Pulse Resp B/P (MAP) Pulse Ox O2 Delivery O2 Flow Rate FiO2 10/25/17 08:03 99.2 97 18 120/61 (80) 94 10/25/17 04:00 99.8 104 18 149/71 (97) 93 10/25/17 00:01 98.8 100 18 127/66 (86) 93 10/24/17 20:30 18 10/24/17 20:00 98.8 92 18 151/67 (95) 94 10/24/17 16:24 98.1 86 18 132/68 (89) 94 10/24/17 14:00 16 10/24/17 12:00 98.2 88 17 120/57 (78) 94 I/O 10/24/17 10/24/17 10/24/17 10/25/17 10/25/17 10/25/17 06:59 14:59 22:59 06:59 14:59 22:59 Intake Total 360 ml 1300 ml Output Total 70 ml 130 ml Balance 290 ml 1170 ml Intake Oral 360 ml 1300 ml Output Drainage Total 70 ml 130 ml # Voids 3 5 5 # Bowel Movements 0 0 Result Diagram: 10/24/17 0630 Objective Remarks GENERAL: This is a well-nourished, well-developed patient, in no apparent distress. CARDIOVASCULAR: Regular rate and rhythm RESPIRATORY: Clear to auscultation. Breath sounds equal bilaterally. No wheezes , rales, or rhonchi. MUSCULOSKELETAL: Right hip bandage clean dry intact NEURO: Alert & Oriented x4 to person, place, time, situation. Moves all ext x4 A/P Assessment and Plan 77-year-old female admitted to hospital for elective total right hip arthroplasty. Elective right sided total hip arthroplasty -Status post operative day #2 continue postoperative -care, pain control, physical therapy per Dr. orta Hypertension, controlled -Continue home dose lisinopril. Constipation -Secondary to pain medication, continue stool softener. Glaucoma -Continue home Latanoprost DVT prophylaxis-Xarelto Discharge Planning Home with home health care when cleared by orthopedic surgery Soni Porter MD Oct 25, 2017 10:09
[2017-10-25 12:10] VITALS: BP 125/86; PULSE 95; RESP 18; TEMP 99; O2SAT 95
[2017-10-25 15:11] VITALS: BP 129/61; PULSE 94; RESP 16; TEMP 98.4; O2SAT 95
[2017-10-25 20:00] VITALS: BP 124/54; PULSE 98; RESP 19; TEMP 98.1; O2SAT 95
[2017-10-25] MEDS: LATANOPROST 0.005% OPHT SOLN 2.5 ML BTL LEFT EYE SCH (21:12)
[2017-10-26] VITALS: BP 148/67; PULSE 106; RESP 19; TEMP 99.5; O2SAT 95
[2017-10-26 04:00] VITALS: BP 129/63; PULSE 97; RESP 16; TEMP 98.9; O2SAT 95
--- NOTE | 2017-10-26 06:39 | MD ---
cc: Terrence Carrion MD, Eugene M MD DATE OF DISCHARGE: 10/26/2017 ADMITTING DIAGNOSIS: Osteoarthritis right hip. DISCHARGE DIAGNOSIS: Osteoarthritis right hip. HISTORY: This is a 77-year-old white female with a history of right hip pain dating back to March of this past year and at that time, the patient was diagnosed as having an intervertebral disk disorder of her lumbosacral spine forward which she was advised conservative management. Her symptoms lingered over a several months thereafter and she returned to the office in June reporting generalized discomfort becoming more localized to her right hip. She had been taking diclofenac on a routine basis with limited benefit being appreciated, but because of her recent flare up of her symptoms, she elected to undergo office examination. Her x-ray studies at that time were suggestive of early degenerative changes with hypertrophic reaction along the lateral margin of the femoral head, but preservation of the joint space. Findings and treatment options were reviewed. The patient was treated with a local steroid injection for a suspected trochanteric bursitis. Unfortunately, her symptoms persisted and she later underwent an MRI scan of the pelvis, the results of which will be reported severe bony edema of the right femoral head and neck with a small linear low signal finding in the subchondral region of the femoral head. Diagnosis included subchondral insufficiency fracture versus early avascular necrosis. Findings and treatment options were again reviewed. The patient was encouraged to proceed with a fluoroscopic injection of her right hip in an attempt to distinguish the etiology of her pain. Unfortunately, the injection did not provide her with any significant pain relief and she continued to not generalized discomfort about her right groin area that was interfering with all ambulatory activities. 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 The pros and cons of continuing with conservative management versus operative intervention that would involve total hip arthroplasty were outlined. Emphasis was made regarding the fact that the decision to proceed with surgery would be left entirely to the patient's discretion. The patient returned to the office in followup disposition indicating that she was feeling more symptomatic with pain and inclined to proceed with surgery as suggested. Her current x-ray studies did demonstrate a more definitive arthritic involvement about the hip area and thus in compliance with the patient's request, she was scheduled for admission in order that the above be accomplished. Her physical examination at the time of admission revealed no localizing tenderness to palpation about the lateral aspect of the right hip. There was restricted mobility of the hip joint being most pronounced with internal and external rotation, pain at the extremes of motion. No sensation of crepitation or instability. Straight leg raising negative at 80 degrees. Brett's sign positive. Distal neurosensory intact. Antalgic gait. HOSPITAL COURSE: Prior to admission to the hospital, the patient had undergone medical evaluation and clearance for surgery as completed by her primary care physician, Dr. Devaughn mina. She was taken to the operating room on 23 October 2017 and on that date underwent a right total hip arthroplasty completed in an uncomplicated manner. The patient was noted to have tolerated her operative procedure well. Her postoperative course stable thereafter. Hemoglobin and hematocrit assessment postoperatively was 11.8 and 35.7 respectively. The patient was progressively mobilized under the guidance of physical therapy being permitted weightbearing to tolerance about the right lower extremity. Followup examination of her surgical wound noted to be intact, healing favorably with no evidence of infection. Medical followup per the hospitalist service. DVT prophylaxis initiated. Improvement Intern consulted to assist with discharge planning. The patient had expressed her desire to be discharged home and continue her rehabilitation on an outpatient basis. Plans were finalized in this regard and pending medical clearance, she was scheduled for discharge on the third postoperative day, at which time she was noted to be making stable progress with regard to her rehab program. She was scheduled to be seen in office followup in approximately 4 weeks. DISCHARGE MEDICATIONS: Included Ultram 50 mg, #40, aspirin 325 mg 1 tab twice daily for 4 weeks, #60. Terrence Carrion MD NBS/DL , 06:11 AM , 06:38 AM
[2017-10-26 08:00] VITALS: BP 115/57; PULSE 93; RESP 17; TEMP 99.1; O2SAT 95
[2017-10-26] MEDS: DEXT 5%-NACL 0.45% 1000 ML INJ 1,000 ML IV SCH (09:19)
[2017-10-26] MEDS: LISINOPRIL 10 MG TAB PO SCH (09:19)
[2017-10-26] MEDS: RIVAROXABAN 10 MG TAB PO SCH (09:19)
[2017-10-26] MEDS: ASPIRIN EC 81 MG TABEC PO SCH (09:20)
--- NOTE | 2017-10-26 10:37 | HHI.PR ---
Subjective Remarks Doing well. No other concerns. Ready to go home today Objective Vitals Vital Signs Date Time Temp Pulse Resp B/P (MAP) Pulse Ox O2 Delivery O2 Flow Rate FiO2 10/26/17 08:00 99.1 93 17 115/57 (76) 95 10/26/17 04:00 98.9 97 16 129/63 (85) 95 10/26/17 00:00 99.5 106 19 148/67 (94) 95 10/25/17 20:00 98.1 98 19 124/54 (77) 95 10/25/17 15:11 98.4 94 16 129/61 (83) 95 10/25/17 12:10 99.0 95 18 125/86 (99) 95 I/O 10/25/17 10/25/17 10/25/17 10/26/17 10/26/17 10/26/17 07:00 15:00 23:00 07:00 15:00 23:00 Intake Total 1200 ml 280 ml Balance 1200 ml 280 ml Intake Oral 1200 ml 280 ml # Voids 5 5 3 Result Diagram: 10/24/17 0630 Objective Remarks GENERAL: This is a well-nourished, well-developed patient, in no apparent distress. CARDIOVASCULAR: Regular rate and rhythm RESPIRATORY: Clear to auscultation. Breath sounds equal bilaterally. No wheezes , rales, or rhonchi. MUSCULOSKELETAL: Right hip bandage clean dry intact NEURO: Alert & Oriented x4 to person, place, time, situation. Moves all ext x4 A/P Assessment and Plan 77-year-old female admitted to hospital for elective total right hip arthroplasty. Elective right sided total hip arthroplasty -Status post operative day #3 continue postoperative -care, pain control, physical therapy per Dr. orta Hypertension, controlled -Continue home dose lisinopril. Constipation -Secondary to pain medication, continue stool softener. Glaucoma -Continue home Latanoprost DVT prophylaxis-Xarelto Discharge Planning Discharge to home with home health care today Soni Porter MD Oct 26, 2017 10:37
[2017-10-26] MEDS: traMADol HCL 50 MG TAB PO PRN (11:33)
== END 2017-10-26 12:10 | disposition home health service (06) | DRG 470 ==
LOC: HSDI 05:08 → N06B 13:37
PROVIDERS: ADMIT Orthopaedic Surgery; ATTEND Orthopaedic Surgery
PROC: 0SR903Z Replacement of Right Hip Joint with Ceramic Synthetic Substitute, Open Approach (ICD-10-PCS; principal; 2017-10-23 06:45)
DX: M16.11 Unilateral primary osteoarthritis, right hip (principal); I10 Essential (primary) hypertension; K59.00 Constipation, unspecified; M51.9 Unspecified thoracic, thoracolumbar and lumbosacral intervertebral disc disorder; H40.9 Unspecified glaucoma; E78.5 Hyperlipidemia, unspecified; M81.0 Age-related osteoporosis without current pathological fracture; Z85.828 Personal history of other malignant neoplasm of skin; Z85.3 Personal history of malignant neoplasm of breast; Z87.891 Personal history of nicotine dependence; Z92.21 Personal history of antineoplastic chemotherapy; Z92.3 Personal history of irradiation; Z96.653 Presence of artificial knee joint, bilateral
CPT/HCPCS: 73501; 85014; 85018; 86850; 86900; 86901; 88304; 88305; 88311; 94150; C1776; J0131; J0690; J1100; J1170; J2250; J2270; J2370; J2405; J2710; J3010; J7120